=== PATIENT | female | born 1950 | race Caucasian/White ===

== ENCOUNTER 2024-11-04 09:58 | Day surgery (SDC) | payer MEDICARE, BC ==
[2024-11-04] MEDS ORDERED: Sodium Chloride 0.9% 10 ML Syringe FLUSH PRN (10:15)
[2024-11-04] MEDS: Lactated Ringers 1,000 ML IV SCH (10:26)
[2024-11-04] MEDS ORDERED: Propofol 200 MG/20 ML SDV ONE (11:00)
[2024-11-04] MEDS ORDERED: Midazolam 1 MG/ML 2 ML SDV ONE (11:00)
== END 2024-11-04 12:47 | disposition home or self-care (01) ==
LOC: KA.SDS 09:58
PROVIDERS: ATTEND Surgery
DX: Z12.11 Encounter for screening for malignant neoplasm of colon (principal); K63.5 Polyp of colon; Z86.0100 Personal history of colon polyps, unspecified; M81.0 Age-related osteoporosis without current pathological fracture; E78.5 Hyperlipidemia, unspecified; Z79.899 Other long term (current) drug therapy; Z87.891 Personal history of nicotine dependence
CPT/HCPCS: 00811; 88305; 99100; J2250; J2704; J7120